=== PATIENT | female | born 1975 | race African-American/Black ===

== ENCOUNTER 2021-07-10 18:05 | Emergency (ER) | payer MEDICARE ==
[~2021-07-10] VITALS: Ht 154.9 cm; Wt 85.7 kg
[2021-07-10 18:34] LABS: BASOPHILS % 0.4 % (0.0-1.0); EOSINOPHILS # (AUTO) 0.1 (0.0-0.4); EOSINOPHILS % 1.1 % (0.0-6.0); HEMATOCRIT 35.9 % (34.2-44.1); HEMOGLOBIN 10.3 g/dL (12.0-16.0); LYMPHOCYTES # (AUTO) 2.2 (1.0-3.2); LYMPHOCYTES % 27.2 % (18.0-39.1); MEAN CORPUSCULAR HEMOGLOBIN 23.9 pg (28-32); MEAN CORPUSCULAR HGB CONC 28.7 g/dL (31-35); MEAN CORPUSCULAR VOLUME 83.3 fL (81-99); MONOCYTES # (AUTO) 0.6 (0.2-0.8); NEUTROPHILS % 62.9 % (38.7-80.0); PLATELET COUNT 334 x10e3/uL (140-360); RED BLOOD COUNT 4.31 x10e6/uL (3.6-5.1); RED CELL DISTRIBUTION WIDTH 17.1 % (11.7-14.4)
[2021-07-10] MEDS ORDERED: IOPAMIDOL 370 MG/ML 200 ML INFUS..BTL INJ ONE (18:48)
[2021-07-10] MEDS ORDERED: SODIUM CHLORIDE 0.9% 50ML 50 ML ONE (18:48)
[2021-07-10 18:49] LABS: ANION GAP 12.8 mmol/L (8-16); CREATININE, SERUM 0.74 mg/dL (0.57-1.11); POTASSIUM 3.8 mmol/L (3.5-5.1)
[2021-07-10 20:52] VITALS: BP 110/73
== END 2021-07-10 20:54 | disposition home or self-care (01) ==
LOC: ER 18:19
DX: L91.0 Hypertrophic scar (principal); D64.9 Anemia, unspecified
CPT/HCPCS: 36415; 74177; 80048; 84702; 85025; 99283; Q9967

== ENCOUNTER 2021-07-18 16:36 | Emergency (ER) | payer MEDICARE ==
[~2021-07-18] VITALS: Ht 154.9 cm; Wt 85.7 kg
[2021-07-18] MEDS ORDERED: CEPHALEXIN500 MG PO (16:51)
== END 2021-07-18 17:34 | disposition home or self-care (01) ==
LOC: ER 16:47
DX: L91.0 Hypertrophic scar (principal)
CPT/HCPCS: 99282